=== PATIENT | female | born 1960 | race Caucasian/White ===

== ENCOUNTER 2020-12-01 16:49 | Outpatient (RCR) | payer MEDICARE, SELFPAY ==
[2015-07-23 13:42] VITALS: BMI 35.4
[2020-12-01] MEDS: COVID-19 VACC, MRNA(PFIZER)/PF 30 MCG/0.3 ML SYRINGE IM (16:05)
[2020-12-22] MEDS: COVID-19 VACC, MRNA(PFIZER)/PF 30 MCG/0.3 ML SYRINGE IM (15:14)
== END 2020-12-01 23:59 ==
LOC: IMMUN 16:49
PROVIDERS: PCP Family Medicine; Visit Provider Family Medicine
DX: Z23 Encounter for immunization (principal)
CPT/HCPCS: 0001A; 0002A; 91300

== ENCOUNTER 2021-01-24 23:35 | Emergency (ER) | payer MEDICARE, SELFPAY ==
[2021-01-24 23:36] VITALS: BP 143/77; PULSE 105; RESP 18; TEMP 36.7; O2SAT 97; BMI 36.7
[2021-01-25 00:09] LABS: Absolute Lymphocyte Count 1.16 X10^3/uL (0.83-4.51); Absolute Neutrophil Count 7.9 X10^3/uL (2.0-7.7); Basophil# 0.04 X10^3/uL; Basophil% 0.4 % (0-1); Eosinophil# 0.09 X10^3/uL; Eosinophils% 0.9 % (0-5); Hematocrit 38.8 % (37-47); Hemoglobin 12.2 g/dL (12.0-15.0); Lymphocyte # 1.16 X10^3/ul (0.83-4.51); Lymphocyte % 11.5 % (19-41); Mean Corp Hgb Conc 31.4 g/dL (32-36); Mean Corpuscular Hgb 28.5 pg (27.0-32.0); Mean Corpuscular Volume 90.7 fL (81-99); Mean Platelet Vol. 10.3 fl (6.2-12.0); Monocyte# 0.88 X10^3/uL; Monocyte% 8.7 % (0-10); NRBC Flagged by Analyzer 0 % (0-5); Neutrophil # 7.87 X10^3/uL (2.7-7.7); Neutrophil % 78.3 % (47-70); Platelet Count 298 K/mm3 (150-450); RBC Distribution Width CV 13.2 % (11.6-14.6); RBC Distribution Width SD 43.8 fl (35.1-43.9); Red Blood Count 4.28 M/mm3 (4.2-5.4); White Blood Count 10.1 K/mm3 (4.4-11.0)
[2021-01-25 00:21] LABS: Anion Gap 8 (5-15); BUN 11 mg/dL (7-18); Calcium,Total 8.4 mg/dL (8.5-10.1); Chloride 105 mmol/L (98-107); Creatinine, Serum 0.85 mg/dL (0.55-1.02); EST Glomerular Filtration Rate 73 mL/min (>60); Est Glom Filt Rate - Afr Amer 88 mL/min (>60); Estimated Creatinine Clearance 92.87 ml/min; Glucose 156 mg/dL (74-106); Potassium 3.7 mmol/L (3.5-5.1); Sodium Level 137 mmol/L (136-145)
--- NOTE | 2021-01-25 01:14 | EX.ED.DYSGE1 ---
HPI History of Present Illness Chief Complaint: Constipation Informant: patient Onset/Context/Timing Onset: Days (6 days) Context: Gradual Onset Current Severity: Moderate Maximum Severity: Moderate Narrative Narrative: Patient presents secondary lower abdominal pain and constipation. She reports being constipated for the last 6 days. She states this is a chronic problem for her and she typically can get it resolved with MiraLAX and Dulcolax. She has tried this with no improvement and now has increased lower abdominal cramping. She denies fever or chills. No personal history of diverticulitis but strong family history. [facility] Medical History Anxiety Constipation Diabetes GERD (gastroesophageal reflux disease) Hyperlipemia Hypothyroidism Home Medications alprazolam 0.25 mg PO BID PRN PRN 11/24/13 [History Last Taken Unknown] levothyroxine 75 mcg PO DAILY 11/24/13 [History Last Taken 11/24/13] citalopram 40 mg PO DAILY 01/24/21 [History Last Taken Unknown] ezetimibe 10 mg PO DAILY 01/24/21 [History Last Taken Unknown] metformin 500 mg PO DAILY 01/24/21 [History Last Taken Unknown] omeprazole 40 mg PO DAILY 01/24/21 [History Last Taken Unknown] trazodone 100 mg PO QHS PRN 01/24/21 [History Last Taken Unknown] amoxicillin-pot clavulanate [Augmentin] 1 tab PO BID #20 tab 01/25/21 [Rx Last Taken Unknown] Allergy/AdvReac Type Severity Reaction Status Date / Time No Known Allergies Allergy Verified 01/24/21 23:38 Social History Smoking Status: Never smoker ROS ROS ED Constitutional Constitutional ED: Denies chills or fever(s) Eyes Eyes: Denies change in vision ENT ENT ED: Denies sore throat Cardiovascular Cardiovascular: Denies chest pain Respiratory/Chest Respiratory/Chest: Denies cough or dyspnea Gastrointestinal Gastrointestinal: Reports abdominal pain and constipation; Denies diarrhea, nausea or vomiting Genitourinary Genitourinary ED: Denies dysuria Musculoskeletal Musculoskeletal: Denies back pain Integumentary Denies rash Neurologic Neurologic: Denies headache(s) or weakness Psychiatric Psychiatric: Denies anxiety or depression Endocrine Endocrinology: Denies polydipsia or polyuria Allergic/Immunologic Allergic/Immunologic ED: Denies urticaria EXAM Physical Exam Const Vital Signs: 01/24/21 23:36 Temperature 98.1 F Temperature Source Temporal Pulse Rate 105 H Respiratory Rate 18 Blood Pressure 143/77 H Blood Pressure Mean 99 Pulse Ox 97 Oxygen Delivery Method Room Air Positive well nourished and well developed General Appearance ED: well developed HEENT Reports normocephalic and head/scalp atraumatic Eyes PERRL and EOMs intact bilaterally Neck supple Chest Wall inspection of chest normal and palpation of chest normal Resp normal respiratory effort and clear to auscultation bilaterally Cardio regular rate and regular rhythm GI Auscultation: hypoactive bowel sounds Palpation: soft and tender other (Moderate tenderness across the lower abdomen. No guarding or rebound.) Back/Spine no CVA tenderness Extremity normal to inspection Neuro oriented x3 and no sensory deficits noted Sensorium / Orientation: alert Motor Exam: strength 5/5 throughout Psych mental status grossly normal Skin no rashes or lesions noted MDM MDM Lab Data Labs: Laboratory Results - last 24 hr 01/24/21 01/24/21 23:55 23:55 WBC 10.1 RBC 4.28 Hgb 12.2 Hct 38.8 MCV 90.7 MCH 28.5 MCHC 31.4 L RDW Std Deviation 43.8 RDW Coeff of Prosper 13.2 Plt Count 298 MPV 10.3 Immature Gran % (Auto) 0.200 Neut % (Auto) 78.3 H Lymph % (Auto) 11.5 L Boundary % (Auto) 8.7 Eos % (Auto) 0.9 Baso % (Auto) 0.4 Absolute Neuts (auto) 7.9 H Absolute Lymphs (auto) 1.16 Nucleated RBC % 0 Sodium 137 Potassium 3.7 Chloride 105 Carbon Dioxide 24.0 Anion Gap 8 BUN 11 Creatinine 0.85 Estim Creat Clear Calc 92.87 Est GFR (MDRD) Af Amer 88 Est GFR (MDRD) Non-Af 73 BUN/Creatinine Ratio 13.0 Glucose 156 H Calcium 8.4 L Radiography Diagnostic Testing: Radiology Impression Abdomen/Pelvis CT 01/25/21 23:48 IMPRESSION: Acute uncomplicated descending colonic diverticulitis. Electronically Signed: Igor Hough DO at 1:17 EDT Tel , Service support , Treatment and Re-Evaluation Comments:: Test results discussed with the patient. She does have evidence of acute diverticulitis. She will be treated with Augmentin, first dose given here. She is given return instructions. Discharge Plan Triage Chief Complaint: Constipation ED Provider: Latrice Xie Dx/Rx/DC Orders Clinical Impression: Diverticulitis Instructions: ED Diverticulitis Prescriptions: New amoxicillin-pot clavulanate [Augmentin] 875-125 mg tablet 1 tab PO BID Qty: 20 RF: 0 No Action alprazolam 0.5 MG tablet 0.25 mg PO BID PRN PRN (Reason: Anxiety) RF: 0 levothyroxine 50 MCG tablet 75 mcg PO DAILY RF: 0 metformin 500 mg Tablet 500 mg PO DAILY RF: 0 citalopram 40 mg Tablet 40 mg PO DAILY RF: 0 omeprazole 40 mg Capsule,Delayed Release(Dr/Ec) 40 mg PO DAILY RF: 0 trazodone 100 mg Tablet 100 mg PO QHS PRN (Reason: Insomnia) RF: 0 ezetimibe 10 mg Tablet 10 mg PO DAILY RF: 0 Primary Care Provider: Stanley Lanza Referrals: Stanley Lanza MD [Primary Care Provider] - 1 Week Disposition Disposition: Home, self care
[2021-01-25] MEDS: Amox/Clavulanate 875 MG Tablet PO (01:39)
[2021-01-25 01:40] VITALS: BP 130/75; PULSE 74; RESP 16; O2SAT 93
--- NOTE | 2021-01-25 23:48 | CT_ITS ---
STUDY: CT ABDOMEN AND PELVIS WITH CONTRAST REASON FOR EXAM: Female, 60 years old. lower abd pain RADIATION DOSAGE (If Supplied By Facility): CTDIvol = ( 25.50 ) mGy, DLP = ( 1537.63 ) mGycm TECHNIQUE: Transaxial images were obtained from the dome of the diaphragm to the symphysis pubis without oral contrast. IV 100mL Isovue-370 was administered. Sagittal and coronal images were reconstructed. Individualized dose optimization techniques were used for this CT. COMPARISON: 05/06/2013 FINDINGS: The visualized lung bases are unremarkable. The visualized portions of the heart are within normal limits. Normal liver. Normal gallbladder and extrahepatic biliary system. Normal spleen. Normal pancreas. Normal bilateral adrenal glands. Normal right kidney. Increased size of left mid pole renal cyst measuring 7.1 x 6 cm. Otherwise, unremarkable left kidney. Normal visualized stomach. Normal small intestine. There is diverticulosis, with thickening of the colon wall, and pericolonic inflammation changes consistent with acute diverticulitis. The appendix is visualized and appears normal. Normal abdominal aorta. Normal inferior vena cava. Normal retroperitoneum. Normal urinary bladder. There is atrophy of the uterus. Normal abdominal wall. Normal osseous structures. CT/Abdomen/Pelvis W IV Cont ONLY IMPRESSION: Acute uncomplicated descending colonic diverticulitis. Electronically Signed: Igor Hough DO at 1:17 EDT Tel , Service support ,
== END 2021-01-25 01:40 | disposition home or self-care (01) ==
PROVIDERS: Emergency Provider Emergency Medicine; PCP Family Medicine
DX: K57.32 Diverticulitis of large intestine without perforation or abscess without bleeding (principal); E03.9 Hypothyroidism, unspecified; E11.9 Type 2 diabetes mellitus without complications; E78.5 Hyperlipidemia, unspecified; F41.9 Anxiety disorder, unspecified; K21.9 Gastro-esophageal reflux disease without esophagitis; Z79.84 Long term (current) use of oral hypoglycemic drugs; Z79.899 Other long term (current) drug therapy
CPT/HCPCS: 74177; 80048; 85025; 90471; 99283; Q9967

== ENCOUNTER 2021-06-18 13:36 | Emergency (ER) | payer MEDICARE, SELFPAY ==
[2021-06-18 13:36] VITALS: BP 146/82; PULSE 94; RESP 24; TEMP 36; O2SAT 95; BMI 36.7
--- NOTE | 2021-06-18 14:11 | EKG12_ITS ---
Test Reason : GEN ILLNESS Blood Pressure : / mmHG Vent. Rate : 079 BPM Atrial Rate : 079 BPM P-R Int : 152 ms QRS Dur : 070 ms QT Int : 378 ms P-R-T Axes : 016 004 038 degrees QTc Int : 433 ms Normal sinus rhythm Normal ECG Confirmed by DAHIANA LUCERO MD ([id number]), manuscript editor PARIS DORMAN ([id number]) on 06/20/2021 8:07:57 AM Referred By: AGUSTIN Confirmed By:DAHIANA LUCERO MD
--- NOTE | 2021-06-18 14:11 | EX.ED.DYSGE1 ---
HPI History of Present Illness Chief Complaint: General Illness Informant: patient Onset/Context/Timing Onset: Today Narrative Narrative: Patient presents via EMS from work. She states this morning at work she noted difficulty focusing and felt nauseated. She states this will typically happen when her blood sugar drops so she assumed that was the problem. She went and got something to eat but noted no change in her symptoms. She then felt abdominal cramps as if she was when of diarrhea. She states this will often happen when her blood sugar is going too high. She did have diarrhea but no blood associated with the stool. She complains of headache and then developed chills. She presented via EMS for evaluation. She denies chest pain or shortness of breath. No cough. [facility] Medical History Anxiety Constipation Diabetes GERD (gastroesophageal reflux disease) Hyperlipemia Hypothyroidism Home Medications alprazolam 0.25 mg PO BID PRN PRN 11/24/13 [History Last Taken Unknown] levothyroxine 75 mcg PO DAILY 11/24/13 [History Last Taken 11/24/13] citalopram 40 mg PO DAILY 01/24/21 [History Last Taken Unknown] ezetimibe 10 mg PO DAILY 01/24/21 [History Last Taken Unknown] metformin 500 mg PO DAILY 01/24/21 [History Last Taken Unknown] omeprazole 40 mg PO DAILY 01/24/21 [History Last Taken Unknown] trazodone 100 mg PO QHS PRN 01/24/21 [History Last Taken Unknown] Allergy/AdvReac Type Severity Reaction Status Date / Time Sttrxjf-[id number]-Png Reductase AdvReac Other Verified 06/18/21 13:41 Inhibitor Social History Smoking Status: Never smoker ROS [facility] ED Constitutional Constitutional ED: Reports chills; Denies fever(s) Eyes Eyes: Denies blurry vision or change in vision ENT ENT ED: Denies rhinorrhea Cardiovascular Cardiovascular: Denies chest pain or palpitations Respiratory/Chest Respiratory/Chest: Denies cough or dyspnea Gastrointestinal Gastrointestinal: Reports diarrhea and nausea; Denies abdominal pain or vomiting Genitourinary Genitourinary ED: Denies dysuria Musculoskeletal Musculoskeletal: Denies back pain or neck pain Integumentary Denies rash Neurologic Neurologic: Denies headache(s) Psychiatric Psychiatric: Denies anxiety or depression Allergic/Immunologic Allergic/Immunologic ED: Denies urticaria EXAM Physical Exam Const Vital Signs: 06/18/21 13:36 06/18/21 13:42 06/18/21 16:39 Temperature 96.8 F L Temperature Source Oral Pulse Rate 94 78 Respiratory Rate 24 H 16 Respiratory Effort Normal Non-Labored Respiratory Pattern Normal Blood Pressure 146/82 H 142/84 H Blood Pressure Mean 103 103 Pulse Ox 95 96 Oxygen Delivery Method Room Air Room Air Positive well nourished and well developed General Appearance ED: well developed Eyes PERRL and EOMs intact bilaterally Neck supple Chest Wall inspection of chest normal and palpation of chest normal Resp normal respiratory effort and clear to auscultation bilaterally Cardio regular rate and regular rhythm GI normal to inspection, nondistended, normoactive bowel sounds and non-tender Palpation: soft Neuro oriented x3 Sensorium / Orientation: alert Psych mental status grossly normal Skin no rashes or lesions noted MDM MDM MDM Narrative Medical decision making narrative: Lab work, urinalysis, Covid swab, EKG obtained. Lab Data Attestation: I reviewed the patient's lab results. Labs: Laboratory Results - last 24 hr 06/18/21 06/18/21 06/18/21 14:35 14:35 16:35 WBC 7.7 RBC 4.58 Hgb 13.2 Hct 41.9 MCV 91.5 MCH 28.8 MCHC 31.5 L RDW Std Deviation 48.3 H RDW Coeff of Prosper 14.4 Plt Count 223 MPV 10.0 Immature Gran % (Auto) 0.100 Neut % (Auto) 84.7 H Lymph % (Auto) 8.2 L Sampson % (Auto) 6.2 Eos % (Auto) 0.1 Baso % (Auto) 0.7 Absolute Neuts (auto) 6.5 Absolute Lymphs (auto) 0.63 L Nucleated RBC % 0 Sodium 139 Potassium 3.5 Chloride 104 Carbon Dioxide 28.0 Anion Gap 7 BUN 13 Creatinine 0.83 Estim Creat Clear Calc 95.05 Est GFR (MDRD) Af Amer 91 Est GFR (MDRD) Non-Af 75 BUN/Creatinine Ratio 15.7 Glucose 120 H Calcium 9.0 Urine Color Yellow Urine Clarity Sl. Cloudy Urine pH 7.0 Ur Specific [place] 1.010 Urine Protein 15 H Urine Glucose (UA) Normal Urine Ketones Negative Urine Occult Blood 150 H Urine Nitrite Negative Urine Bilirubin Negative Urine Urobilinogen Normal Ur Leukocyte Esterase 500 H Urine RBC 0-5 SEEN Urine WBC 5-10 SEEN Ur Squamous Epith Cells 5-10 SEEN Ur Renal Epithelial Cell 0-5 SEEN Urine Bacteria 0 SEEN Urine Mucus 0 SEEN EKG Initial EKG: Attestation: I personally reviewed and interpreted this EKG as follows: Interpretation: Sinus Rhythm (Sinus at 79 with no acute ischemia.) Treatment and Re-Evaluation Comments:: Patient resting comfortably on repeat evaluation. Vital signs have been stable. Test results discussed with her. At this time I see no significant acute abnormalities. Covid swab is negative. I discussed with patient using supportive measures of the next couple days. She is to monitor her symptoms and return if worsened or any concerns. She voices understanding and agreement. Discharge Plan Triage Chief Complaint: General Illness ED Provider: Latrice Xie Dx/Rx/DC Orders Clinical Impression: Generalized weakness Instructions: ED Weakness (Uncertain Cause) Prescriptions: No Action alprazolam 0.5 MG tablet 0.25 mg PO BID PRN PRN (Reason: Anxiety) RF: 0 levothyroxine 50 MCG tablet 75 mcg PO DAILY RF: 0 metformin 500 mg Tablet 500 mg PO DAILY RF: 0 citalopram 40 mg Tablet 40 mg PO DAILY RF: 0 omeprazole 40 mg Capsule,Delayed Release(Dr/Ec) 40 mg PO DAILY RF: 0 trazodone 100 mg Tablet 100 mg PO QHS PRN (Reason: Insomnia) RF: 0 ezetimibe 10 mg Tablet 10 mg PO DAILY RF: 0 Primary Care Provider: Stanley Lanza Referrals: Stanley Lanza MD [Primary Care Provider] - 5-7 Days Disposition Disposition: Home, Self Care
[2021-06-18 14:45] LABS: Absolute Lymphocyte Count 0.63 X10^3/uL (0.83-4.51); Absolute Neutrophil Count 6.5 X10^3/uL (2.0-7.7); Basophil# 0.05 X10^3/uL; Basophil% 0.7 % (0-1); Eosinophil# 0.01 X10^3/uL; Eosinophils% 0.1 % (0-5); Hematocrit 41.9 % (37-47); Hemoglobin 13.2 g/dL (12.0-15.0); Lymphocyte # 0.63 X10^3/ul (0.83-4.51); Lymphocyte % 8.2 % (19-41); Mean Corp Hgb Conc 31.5 g/dL (32-36); Mean Corpuscular Hgb 28.8 pg (27.0-32.0); Mean Corpuscular Volume 91.5 fL (81-99); Monocyte# 0.48 X10^3/uL; Monocyte% 6.2 % (0-10); NRBC Flagged by Analyzer 0 % (0-5); Neutrophil # 6.51 X10^3/uL (2.7-7.7); Neutrophil % 84.7 % (47-70); Platelet Count 223 K/mm3 (150-450); RBC Distribution Width CV 14.4 % (11.6-14.6); RBC Distribution Width SD 48.3 fl (35.1-43.9); Red Blood Count 4.58 M/mm3 (4.2-5.4); White Blood Count 7.7 K/mm3 (4.4-11.0)
[2021-06-18 14:55] LABS: Anion Gap 7 (5-15); BUN 13 mg/dL (7-18); BUN/Creat Ratio 15.7 RATIO (10-20); Chloride 104 mmol/L (98-107); Creatinine, Serum 0.83 mg/dL (0.55-1.02); EST Glomerular Filtration Rate 75 mL/min (>60); Est Glom Filt Rate - Afr Amer 91 mL/min (>60); Estimated Creatinine Clearance 95.05 ml/min; Glucose 120 mg/dL (74-106); Potassium 3.5 mmol/L (3.5-5.1); Sodium Level 139 mmol/L (136-145)
[2021-06-18 16:39] VITALS: BP 142/84; PULSE 78; RESP 16; O2SAT 96
[2021-06-18 16:41] LABS: Bacteria 0 SEEN /hpf (None Seen); Mucous, Urine 0 SEEN /hpf (<or=2+)
[2021-06-18 16:48] LABS: Color, Urine Yellow (Yellow); Glucose, Dipstick Normal (Normal); Ketone-Dipstick Negative (Negative); Leukocyte Esterase-Dipstick 500 /ul (Negative); Nitrite-Dipstick Negative (Negative); Occult Blood-Urine 150 /ul (Negative); Protein-Dipstick 15 mg/dl (Negative); Urine Bilirubin Dipstick Negative (Negative); Urine Clarity Sl. Cloudy (Clear); Urine Urobilinogen Normal (Normal)
[2021-06-18 16:54] LABS: Red Blood Cells-Urine 0-5 SEEN /hpf (0-5); Renal Epithelial Cells 0-5 SEEN /hpf (0-5); Squamous Epithelial Cells - UA 5-10 SEEN /hpf (5-10); White Blood Cells 5-10 SEEN /hpf (0-5)
[2021-06-18 17:56] VITALS: BP 149/67; PULSE 72; RESP 16; O2SAT 96
== END 2021-06-18 18:00 | disposition home or self-care (01) ==
PROVIDERS: Emergency Provider Emergency Medicine; PCP Family Medicine
DX: R53.1 Weakness (principal); E03.9 Hypothyroidism, unspecified; E11.9 Type 2 diabetes mellitus without complications; K21.9 Gastro-esophageal reflux disease without esophagitis; Z79.84 Long term (current) use of oral hypoglycemic drugs; Z79.899 Other long term (current) drug therapy
CPT/HCPCS: 80048; 81001; 85025; 87426; 93005; 99285; A4216

== ENCOUNTER 2021-06-22 23:05 | Emergency (ER) | payer MEDICARE, SELFPAY ==
[2021-06-22 23:06] VITALS: BP 123/75; PULSE 86; RESP 14; TEMP 36.6; O2SAT 96; BMI 34.9
--- NOTE | 2021-06-22 23:17 | EDS_ITS ---
HPI History of Present Illness Chief Complaint: Other, Pain/Inj Informant: patient Onset/Context/Timing Onset: Days Context: Gradual Onset Current Severity: Moderate Maximum Severity: Moderate Narrative Narrative: Patient presents with mouth and vaginal pain. Patient was seen here 4 days ago with generalized weakness and feeling that her blood sugar was off. Work-up at that time was pursued and largely unremarkable. Patient states at that time she was having mouth and vaginal pain and does not got any better. She denies fever or chills. She checked her blood sugar today after lunch and it was 180. [facility] Medical History Anxiety Constipation Diabetes GERD (gastroesophageal reflux disease) Hyperlipemia Hypothyroidism Home Medications levothyroxine 75 mcg PO DAILY 11/24/13 [History Last Taken 11/24/13] citalopram 40 mg PO DAILY 01/24/21 [History Last Taken Unknown] ezetimibe 10 mg PO DAILY 01/24/21 [History Last Taken Unknown] metformin 500 mg PO DAILY 01/24/21 [History Last Taken Unknown] omeprazole 40 mg PO DAILY 01/24/21 [History Last Taken Unknown] acyclovir 1 tab PO TID 10 Days #30 tab 06/22/21 [Rx Last Taken Unknown] hydrocodone-acetaminophen 1 tab PO Q6H PRN 3 Days #10 tab 06/22/21 [Rx Last Taken Unknown] meloxicam 15 mg PO DAILY 06/22/21 [History Last Taken Unknown] nystatin 5 ml PO Q6H 14 Days #280 ml 06/22/21 [Rx Last Taken Unknown] Allergy/AdvReac Type Severity Reaction Status Date / Time Iepxjqa-Kwl-Npv Reductase AdvReac Other Verified 06/22/21 23:10 Inhibitor Social History Smoking Status: Never smoker ROS ROS ED Constitutional Constitutional ED: Denies chills or fever(s) Eyes Eyes: Denies change in vision ENT ENT ED: Reports other Details: Generalized mouth pain Cardiovascular Cardiovascular: Denies chest pain Respiratory/Chest Respiratory/Chest: Denies cough or dyspnea Gastrointestinal Gastrointestinal: Denies abdominal pain, diarrhea, nausea or vomiting Genitourinary Genitourinary ED: Reports dysuria and other Details: Vaginal pain Musculoskeletal Musculoskeletal: Denies back pain Integumentary Denies rash Neurologic Neurologic: Denies headache(s) or weakness Allergic/Immunologic Allergic/Immunologic ED: Denies urticaria EXAM Physical Exam Const Vital Signs: 06/22/21 23:06 Temperature 97.9 F Temperature Source Temporal Pulse Rate 86 Respiratory Rate 14 Blood Pressure 123/75 H Blood Pressure Mean 91 Pulse Ox 96 Oxygen Delivery Method Room Air Positive well nourished and well developed General Appearance ED: well developed HEENT Reports moist mucous membranes HEENT Narrative: Thrush noted over the patient's tongue. Scant lesions noted on the buccal surface. Neck supple Chest Wall inspection of chest normal and palpation of chest normal Resp normal respiratory effort and clear to auscultation bilaterally Cardio regular rate and regular rhythm GI normal to inspection, nondistended, normoactive bowel sounds and non-tender Palpation: soft Narrative: External examination reveals ulcerated lesions concerning for h erpes. Speculum examination reveals a few lesions in the vaginal canal as well. No discharge or bleeding noted. No sign of secondary infection. Extremity normal to inspection Neuro oriented x3 Sensorium / Orientation: alert Psych Mood & Affect: anxious Skin no rashes or lesions noted MDM MDM Treatment and Re-Evaluation Comments:: Herpes culture will be sent. Urinalysis along with GC chlamydia testing sent. Patient be treated with nystatin swish and swallow for her oral thrush. She will be started on acyclovir for genital herpes. Discharge Plan Triage Chief Complaint: Other, Pain/Inj ED Provider: Latrice Xie Dx/Rx/DC Orders Clinical Impression: Oral thrush, Herpes genitalia Instructions: [place] Infection: Thrush, ED Herpes Genitalis, Hsv: Type Ii Prescriptions: New nystatin 100,000 unit/mL suspension 5 ml PO Q6H 14 Days Qty: 280 RF: 0 acyclovir 400 mg tablet 1 tab PO TID 10 Days Qty: 30 RF: 0 hydrocodone-acetaminophen 5-325 mg tablet 1 tab PO Q6H PRN (Reason: pain) 3 Days Qty: 10 RF: 0 No Action levothyroxine 50 MCG tablet 75 mcg PO DAILY RF: 0 metformin 500 mg Tablet 500 mg PO DAILY RF: 0 citalopram 40 mg Tablet 40 mg PO DAILY RF: 0 omeprazole 40 mg Capsule,Delayed Release(Dr/Ec) 40 mg PO DAILY RF: 0 ezetimibe 10 mg Tablet 10 mg PO DAILY RF: 0 meloxicam 15 mg tablet 15 mg PO DAILY RF: 0 Primary Care Provider: Stanley Lanza Referrals: Shasha Gupta MD [STAFF PHYSICIAN] - As soon as possible Stanley Lanza MD [Primary Care Provider] - Disposition Disposition: Home, Self Care
[2021-06-23 00:12] LABS: Mucous, Urine 0 SEEN /hpf (<or=2+)
[2021-06-23] MEDS: NYSTATIN 500,000 UNIT/5 ML UDC 500000 UNIT PO (00:13)
[2021-06-23] MEDS: Acyclovir 200 MG Capsule 400 MG PO (00:13)
[2021-06-23] MEDS: HYDROcodone Bitartrate/Apap 5/325 Tablet PO (00:14)
[2021-06-23 00:27] LABS: Color, Urine Yellow (Yellow); Glucose, Dipstick Normal (Normal); Ketone-Dipstick 15 mg/dl (Negative); Leukocyte Esterase-Dipstick 500 /ul (Negative); Nitrite-Dipstick Negative (Negative); Occult Blood-Urine 150 /ul (Negative); Protein-Dipstick 30 mg/dl (Negative); Urine Bilirubin Dipstick Negative (Negative); Urine Clarity Clear (Clear); Urine Urobilinogen Normal (Normal)
[2021-06-23 00:44] LABS: Bacteria 4+ /hpf (None Seen); Red Blood Cells-Urine 0-5 SEEN /hpf (0-5); Squamous Epithelial Cells - UA 0-5 SEEN /hpf (5-10); White Blood Cells 25-50 SEEN /hpf (0-5)
[2021-06-23 02:26] LABS: Chlamydia Trachomatis by PCR Negative (Negative); Neisserai gonorrhoeae by PCR Negative (Negative); Probe Check PASS; Sample Adequacy Control PASS; Specimen Processing Control PASS
== END 2021-06-23 00:27 | disposition home or self-care (01) ==
LOC: ED 06-23 00:16
PROVIDERS: Emergency Provider Emergency Medicine; PCP Family Medicine
DX: B37.0 Candidal stomatitis (principal); A60.00 Herpesviral infection of urogenital system, unspecified; E03.9 Hypothyroidism, unspecified; E11.9 Type 2 diabetes mellitus without complications; E78.5 Hyperlipidemia, unspecified; F41.9 Anxiety disorder, unspecified; K21.9 Gastro-esophageal reflux disease without esophagitis; Z79.84 Long term (current) use of oral hypoglycemic drugs; Z79.899 Other long term (current) drug therapy
CPT/HCPCS: 81001; 87255; 87491; 87591; 99284